=== PATIENT | male | born 1970 | race Caucasian/White ===

== ENCOUNTER 2022-10-06 03:34 | Emergency (ER) | payer MEDICAID ==
[2022-10-06] MEDS ORDERED: Sodium Chloride 0.9% 10 ML Syringe FLUSH PRN (03:52)
[2022-10-06] MEDS ORDERED: Prochlorperazine 10 MG/2 ML SDV IV ONE (04:38)
[2022-10-06 04:43] LABS: BASOPHILS PERCENT AUTO 0.2 % (0.2-1.2); EOSINOPHILS ABSOLUTE AUTO 0.3 x10^3/uL (0.0-0.5); EOSINOPHILS PERCENT AUTO 2.7 % (0.0-4.0); HEMOGLOBIN 15.4 g/dL (14.0-18.0); IMMATURE GRAN ABSOLUTE AUTO 0.09 x10^3/uL (0.00-0.07); LYMPHOCYTES ABSOLUTE AUTO 3.1 x10^3/uL (1.0-4.8); LYMPHOCYTES PERCENT AUTO 27.6 % (25.0-50.0); MEAN CORPUSCULAR HEMOGLOBIN 29.9 pg (26.0-32.0); MEAN CORPUSCULAR VOLUME 85.4 fL (78.0-93.0); MONOCYTES ABSOLUTE AUTO 1.1 x10^3/uL (0.0-0.8); MONOCYTES PERCENT AUTO 9.6 % (2.0-11.0); NEUTROPHILS ABSOLUTE AUTO 6.6 x10^3/uL (1.8-7.7); NEUTROPHILS PERCENT AUTO 59.1 % (50.0-80.0); PLATELET COUNT,PLT 161 x10^3/uL (130-400); RED BLOOD CELL COUNT 5.15 x10^6/uL (4.5-6.0); WHITE BLOOD CELL COUNT,WBC 11.2 x10^3/uL (4.0-10.0)
[2022-10-06 05:02] LABS: PROTHROMBIN TIME 10.8 SEC (9.5-12.2); PTT,PARTIAL THROMBOPLSTIN TIME 22.7 SEC (23.6-33.6)
[2022-10-06 05:13] LABS: A/G RATIO 0.97; ALANINE AMINOTRANSFERASE,ALT 111 U/L (16-63); ALBUMIN 3.6 g/dL (3.4-5.0); ALKALINE PHOSPHATASE 77 U/L (46-116); ASPARTATE AMNIOTRANSFERASE,AST 58 U/L (15-37); BILIRUBIN TOTAL 0.4 mg/dL (0.2-1.0); BLOOD UREA NITROGEN,BUN 17 mg/dL (7-18); CALCIUM 8.5 mg/dL (8.5-10.1); CARBON DIOXIDE,CO2 28 mmol/L (21-32); CHLORIDE,CL 103 mmol/L (98-107); CREATININE 1.1 mg/dL (0.70-1.30); ETHANOL BLOOD MEDICAL 4 mg/dL (0-3); GLUCOSE RANDOM 165 mg/dL (70-99); MAGNESIUM 1.9 mg/dL (1.8-2.4); POTASSIUM,K 3.7 mmol/L (3.5-5.1); PROTEIN TOTAL,TP 7.3 g/dL (6.4-8.2); SODIUM,NA 142 mmol/L (136-145); TSH ULTRASENSITIVE 1.405 uIU/mL (0.358-3.74)
[2022-10-06 05:20] LABS: ANION GAP 14.7 mmol/L (5-15); ESTIMATED GFR 80 mL/min (>=60)
[2022-10-06] MEDS ORDERED: Clopidogrel 75 MG Tab PO ONE (05:22)
[2022-10-06] MEDS ORDERED: Sodium Chloride 0.9% 1,000 ML IV SCH (05:40)
[2022-10-06] MEDS ORDERED: Iopamidol 755 Mg/ML 100 ML Bottle IVPUSH ONE (20:21)
== END 2022-10-06 06:30 | disposition short-term general hospital (02) ==
LOC: VM.ED 03:34
DX: R42 Dizziness and giddiness (principal)
CPT/HCPCS: 36415; 70450; 70496; 80053; 80307; 83735; 84443; 84484; 85025; 85610; 85730; 93005; 93010; 96361; 96374; 96375; 99284; 99285-25; A9270-GY; J0780; J3360; J7030; Q9967